=== PATIENT | female | born 1985 | race Caucasian/White ===

== ENCOUNTER 2016-07-16 11:35 | Emergency (ER) | payer SELFPAY ==
[2016-07-16 12:08] LABS: BASO % 0.5 % (0.1-1.2); EOS # 0.2 10_X3_uL (0.0-0.4); EOS % 3.1 % (0.7-5.8); GRAN # 3.9 10_X3_uL (1.6-6.1); GRAN % 67.4 % (34.0-71.1); HEMATOCRIT 36.7 % (34-45); HEMOGLOBIN 12.6 g/dL (11.2-15.7); LYMPH # 1.3 10_X3_uL (1.2-3.7); MEAN CORPUSCULAR HEMOGLOBIN 29.4 pg (27.0-33.0); MEAN CORPUSCULAR HGB CONC 34.3 g/dL (32.0-36.0); MEAN CORPUSCULAR VOLUME 85.5 fL (79-95); MEAN PLATELET VOLUME 10.5 fl (7.5-11.5); MONO # 0.4 10_X3_uL (0.2-0.9); PLATELET COUNT 182 x10_3/uL (182-369); RED BLOOD COUNT 4.29 x10_6/uL (3.9-5.2); RED CELL DISTRIBUTION WIDTH 14.4 % (11.7-14.4); WHITE BLOOD COUNT 5.8 x10_3/uL (4.0-10.0)
[2016-07-16 12:24] LABS: ALBUMIN 4.2 gm/dL (3.4-5.0); ALKALINE PHOSPHATASE 61 U/L (50-136); ALT/SGPT 38 U/L (3.5-33.9); AMYLASE 36 U/L (15.62-74.58); AST/SGOT 34 U/L (7.04-26.96); BILIRUBIN,TOTAL 0.65 mg/dL (0.0-1.0); BLOOD UREA NITROGEN 11 mg/dL (7-18); CALCIUM 9.1 mg/dL (8.7-10.7); CARBON DIOXIDE 25 mmol/L (21-32); CREATININE 0.6 mg/dL (0.6-1.3); GLUCOSE,RANDOM 219 mg/dL (70-99); LIPASE 39 U/L (6.75-60.75); POTASSIUM 4.1 mmol/L (3.5-5.1); SODIUM 139 mmol/L (136-145)
== END 2016-07-16 14:12 | disposition home or self-care (01) ==
LOC: ER 11:35
PROVIDERS: General Practice
DX: K80.70 Calculus of gallbladder and bile duct without cholecystitis without obstruction (principal); E11.9 Type 2 diabetes mellitus without complications; I16.0 Hypertensive urgency; I10 Essential (primary) hypertension; R74.9 Abnormal serum enzyme level, unspecified; Z79.899 Other long term (current) drug therapy
CPT/HCPCS: 36415; 80053; 82150; 83690; 85025; 96374; 99070; 99284; 99284-25